=== PATIENT | female | born 1975 | race Caucasian/White ===

== ENCOUNTER 2018-05-18 09:02 | Emergency (ER) | payer OTHER ==
[2018-05-18 09:27] VITALS: BP 133/92
[2018-05-18] MEDS ORDERED: Mupirocin 2% OINT* TUBE TOPICAL ONE ×2 (09:45→09:53)
--- NOTE | 2018-05-18 10:02 | UC ---
Skin Complaint HPI - HPI Summary HPI Summary: Patient states she started developing a skin abscess on left buttock and left cheek several days ago. Family members have MRSA. She states she suffers from folliculitis and has frequent skin infections. She denies PMH other than depression and anxiety. She denies chills or fever during this episode. She has been under multiple antibiotics in the past and has developed allergic /adverse reactions to them. - History of Current Complaint Chief Complaint: UCSkin Time Seen by Provider: 05/18/18 09:23 Stated Complaint: SKIN COMPLAINT Hx Obtained From: Patient Hx Last Menstrual Period: 05/04/18 ?: No Onset/Duration: Sudden Onset Skin Exposure Onset/Duration: Days Ago Onset Severity: Moderate Current Severity: Moderate Pain Intensity: 3 Location: Generalized Aggravating Factor(s): Touch Associated Signs & Symptoms: Positive: Negative Related History: Possible Reaction to: Environmental Exposure - Allergy/Home Medications Allergies/Adverse Reactions: Allergies Allergy/AdvReac Type Severity Reaction Status Date / Time cephalexin [From Keflex] Allergy Severe rash, Verified 05/18/18 09:16 fever, elavated bp amoxicillin Allergy Unknown Hives Verified 05/18/18 09:16 aspirin Allergy Unknown hives, Verified 05/18/18 09:16 lips swell azithromycin Allergy Unknown Hives Verified 05/18/18 09:16 doxycycline Allergy Unknown hives and Verified 05/18/18 09:16 dizziness minocycline Allergy Unknown Hives Verified 05/18/18 09:16 Penicillins Allergy Unknown Hives Verified 05/18/18 09:16 Sulfa (Sulfonamide Allergy Unknown Hives Verified 05/18/18 09:16 Antibiotics) clindamycin AdvReac Unknown diarrhea Verified 05/18/18 09:49 for two months Home Medications: Home Medications Acetaminophen TAB* [Tylenol TAB*] 650 mg PO Q4H PRN 05/18/18 [History Confirmed 05/18/18] PARoxetine HCL TAB* [Paxil TAB*] 40 mg PO DAILY 05/18/18 [History Confirmed ] Review of Systems Constitutional: Negative Skin: Rash All Other Systems Reviewed And Are Negative: Yes PMH/Surg Hx/FS Hx/Imm Hx - Surgical History Surgical History: None - Social History Alcohol Use: Occasionally Substance Use Type: None Smoking Status (MU): Heavy Every Day Tobacco Smoker Type: Cigarettes Have You Smoked in the Last Year: Yes Household Exposure Type: Cigarettes Physical Exam Triage Information Reviewed: Yes Appearance: Well-Appearing, No Pain Distress, Obese Vital Signs: Initial Vital Signs Temp 98.7 F 05/18/18 09:19 Pulse 92 05/18/18 09:19 Resp 18 05/18/18 09:19 BP 133/92 05/18/18 09:19 Pulse Ox 98 05/18/18 09:19 Vital Signs Reviewed: Yes Eyes: Positive: Conjunctiva Clear ENT: Positive: Hearing grossly normal, Pharynx normal Neck: Positive: Supple, Nontender, No Lymphadenopathy Respiratory: Positive: Chest non-tender, Lungs clear, Normal breath sounds, No respiratory distress Cardiovascular: Positive: Pulses Normal, Brisk Capillary Refill Abdomen Description: Positive: Nontender Skin Exam: Other - erythematous induration on left buttock and left cheek with central ulceration. Multiple scars and healing ulcers along spine and on upper/ lower back. Course/Dx - Course Course Of Treatment: Patient has cellulitis of left buttock and left cheek, to start clindamycin as prescribed. Topical care with hibiclens and bactroban instructions given. Wound Culture sent pending results. - Diagnoses Provider Diagnoses: Cellulitis of left buttock and left cheek. Exposure to MRSA Discharge - Sign-Out/Discharge Documenting (check all that apply): Patient Departure All imaging exams completed and their final reports reviewed: No Studies - Discharge Plan Condition: Stable Disposition: HOME Prescriptions: Chlorhexidine Gluconate [Hibiclens] 236 ml TP DAILY #1 liquid Clindamycin HCl 150 mg PO TID 7 Days #21 capsule Patient Education Materials: Cellulitis (ED), Clindamycin (By mouth), Chlorhexidine (On the skin), Mupirocin (On the skin) Referrals: Roslyn Kapoor MD [Primary Care Provider] - - Billing Disposition and Condition Condition: STABLE Disposition: Home
--- NOTE | 2018-05-19 08:47 | UC ---
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 Patient on clindamycin. NO change Discharge - Sign-Out/Discharge Documenting (check all that apply): Post-Discharge Follow Up All imaging exams completed and their final reports reviewed: No Studies - Discharge Plan Condition: Stable Disposition: HOME Prescriptions: Chlorhexidine Gluconate [Hibiclens] 236 ml TP DAILY #1 liquid Clindamycin HCl 150 mg PO TID 7 Days #21 capsule Patient Education Materials: Clindamycin (By mouth), Mupirocin (On the skin), Chlorhexidine (On the skin), Cellulitis (ED) Referrals: Roslyn Kapoor MD [Primary Care Provider] - - Billing Disposition and Condition Condition: STABLE Disposition: Home
== END 2018-05-18 10:15 | disposition home or self-care (01) ==
LOC: UCCORT 09:02 → MERGE 09:02 → UCCORT 10:15
DX: L03.317 Cellulitis of buttock (principal); L03.211 Cellulitis of face; B95.62 Methicillin resistant Staphylococcus aureus infection as the cause of diseases classified elsewhere; Z20.818 Contact with and (suspected) exposure to other bacterial communicable diseases; Z88.0 Allergy status to penicillin; Z88.1 Allergy status to other antibiotic agents; F17.210 Nicotine dependence, cigarettes, uncomplicated
CPT/HCPCS: 87070; 87077; 87186; 87205; 87640; 87641; 99213; G0463